=== PATIENT | male | born 2000 | race Two or more races ===

== ENCOUNTER 2024-08-05 09:44 | Emergency (ER) | payer OTHER ==
[~2024-08-05] VITALS: Ht 180.3 cm; Wt 56.7 kg
[2024-08-05 14:47] LABS: BASO % 1.6 % (0.1-1.2); EOS # 0.31 (0.04-0.54); EOS % 6.1 % (0.7-7.0); HEMATOCRIT 45.3 % (40.1-51.0); HEMOGLOBIN 15.5 g/dL (13.7-17.5); LYMPH % 29.5 % (19.3-53.1); MEAN CORPUSCULAR HEMOGLOBIN 30.2 pg (25.6-32.2); MONO % 7.9 % (4.7-12.5); NEUT # 2.79 (1.56-6.13); NEUT % 54.7 % (34.0-71.1); PLATELET COUNT 225 K/uL (163-369); RED BLOOD COUNT 5.14 M/uL (4.63-6.08); RED CELL DISTRIBUTION WIDTH 11.9 % (11.6-14.4)
[2024-08-05 15:06] LABS: ALBUMIN 4.4 gm/dL (3.4-5.0); BILIRUBIN TOTAL 0.45 mg/dL (0.3-1.2); CALCIUM 9.3 mg/dL (8.5-10.1); CREATININE SERUM 0.87 mg/dL (0.70-1.30); GFR 108.74; GLOBULINA 3.4 G/DL (2.4-3.5); TOTAL PROTEIN 7.8 gm/dL (6.4-8.2)
[2024-08-05] MEDS ORDERED: DICLOFENAC POTA50 MG PO (15:49)
== END 2024-08-05 16:13 | disposition home or self-care (01) ==
LOC: ER 09:50
DX: M94.0 Chondrocostal junction syndrome [Tietze] (principal)